=== PATIENT | male | born 1970 | race Caucasian/White ===

== ENCOUNTER 2017-02-26 14:42 | Emergency (ER) | payer OTHER ==
[2017-02-26 14:51] VITALS: BP 124/73; PULSE 76; RESP 16; TEMP 98; O2SAT 98
[2017-02-26] MEDS ORDERED: Lidocaine 1% Inj (20ml) IJ STA (14:55)
[2017-02-26] MEDS ORDERED: TDAP Vaccine 0.5 mL Syr IM ONE (14:55)
--- NOTE | 2017-02-26 15:00 | ED PDOC ---
Arrival/HPI - General Historian: Patient <Omari Monteiro - Last Filed: 02/26/17 15:18> <Araceli Potts - Last Filed: 02/26/17 15:31> - General Chief Complaint: Abnormal Skin Integrity Time Seen by Provider: 02/26/17 14:53 - History of Present Illness Narrative History of Present Illness (Text): 02/26/17 14:56 46 y/o male, no pmh, nkda, last tetanus doesn't remember, c/o rt. hand thumb laceration by the knife x 2 hours. Pt. has no numbness or tingling, no dizziness, no night sweat, no chest pain or shortness of breath, no palpitation , bleeding resolved, no other medical or psychological complaints. (Omari Monteiro) Past Medical History - Provider Review Nursing Documentation Reviewed: Yes - Psychiatric Hx Psychophysiologic Disorder: No Hx Substance Use: No <Omari Monteiro - Last Filed: 02/26/17 15:18> Family/Social History - Physician Review Nursing Documentation Reviewed: Yes Family/Social History: Unknown Family HX Smoking Status: Never Smoked Hx Alcohol Use: No Hx Substance Use: No <Omari Monteiro - Last Filed: 02/26/17 15:18> Allergies/Home Meds <Omari Monteiro - Last Filed: 02/26/17 15:18> <Araceli Potts - Last Filed: 02/26/17 15:31> Allergies/Adverse Reactions: Allergies No Known Allergies Allergy (Verified 02/26/17 14:48) Review of Systems - Review of Systems Constitutional: absent: Fatigue, Fevers Eyes: absent: Vision Changes ENT: absent: Hearing Changes Respiratory: absent: SOB, Cough, Sputum Cardiovascular: absent: Chest Pain Gastrointestinal: absent: Abdominal Pain, Diarrhea, Nausea, Vomiting Musculoskeletal: absent: Arthralgias, Back Pain, Myalgias Skin: Laceration. absent: Rash, Pruritis, Skin Lesions, Abscess, Ulcer, Cellulitis Neurological: absent: Headache, Dizziness, Focal Weakness, Gait Changes, Speech Changes Psychiatric: absent: Anxiety, Depression, Suicidal Ideation <Omari Monteiro - Last Filed: 02/26/17 15:18> Physical Exam Vital Signs Reviewed: Yes Temperature: Afebrile Blood Pressure: Normal Pulse: Regular Respiratory Rate: Normal Appearance: Positive for: Well-Appearing, Non-Toxic, Comfortable Pain Distress: Mild Mental Status: Positive for: Alert and Oriented X 3 - Systems Exam Head: Present: Atraumatic, Normocephalic Pupils: Present: PERRL Extroacular Muscles: Present: EOMI Conjunctiva: Present: Normal Mouth: Present: Moist Mucous Membranes Neck: Present: Normal Range of Motion Respiratory/Chest: Present: Clear to Auscultation, Good Air Exchange. No: Respiratory Distress, Accessory Muscle Use Cardiovascular: Present: Regular Rate and Rhythm, Normal S1, S2. No: Murmurs Abdomen: Present: Normal Bowel Sounds. No: Tenderness, Distention, Peritoneal Signs Back: Present: Normal Inspection Upper Extremity: Present: Normal Inspection, Other (Rt. hand: 1st digital thumb noted on the distal ventral pad region noted with superficial 2 laceration wounds totally approx. 3cm noted with mild oozing, no visible foreign bodies, FROM without limitation, sensation intact, motor 5/5, +radial pulse, capillary refill< 2 seconds, neurovascular intact. ). No: Cyanosis, Edema Lower Extremity: Present: Normal Inspection. No: Edema Neurological: Present: GCS=15, CN II-XII Intact, Speech Normal Skin: Present: Warm, Dry, Normal Color. No: Rashes Psychiatric: Present: Alert, Oriented x 3, Normal Insight, Normal Concentration <Omari Monteiro - Last Filed: 02/26/17 15:18> Medical Decision Making <Omari Monteiro - Last Filed: 02/26/17 15:18> <Araceli Potts - Last Filed: 02/26/17 15:31> ED Course and Treatment: 02/26/17 14:58 -tetanus, keflex -wound irrigated with 1000cc of normal saline, clean with betadine, 2cc of 1% lidocaine injected for local anesthetic as digital block, 5-0 nylon made 7 sutures, hemostasis obtained, bacitracin applied, gauze dressing, sensation intact, motor 5/5 -Discharge home with keflex, motrin, bacitracin ointment, keep the dressing dry and clean for 36 hours, sutures need to be removed by day 11-12, follow up with your own pmd and hand specialist within 2 days, return to the ER for any new or worsening signs or symptoms. 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 <Omari Monteiro - Last Filed: 02/26/17 15:18> - PA / LOCK SETTER / Resident Statement LEOLA has reviewed & agrees with the documentation as recorded. <Araceli Potts - Last Filed: 02/26/17 15:31> Disposition/Present on Arrival - Present on Arrival Any Indicators Present on Arrival: No History of DVT/PE: No History of Uncontrolled Diabetes: No Urinary Catheter: No History of Decub. Ulcer: No History Surgical Site Infection Following: None - Disposition Have Diagnosis and Disposition been Completed?: Yes Disposition Time: 15:19 Patient Plan: Discharge <Omari Monteiro - Last Filed: 02/26/17 15:18> <Araceli Potts - Last Filed: 02/26/17 15:31> - Disposition Diagnosis: Thumb laceration Disposition: HOME/ ROUTINE Condition: GOOD Additional Instructions: Discharge home with keflex, motrin, bacitracin ointment, keep the dressing dry and clean for 36 hours, sutures need to be removed by day 11-12, follow up with your own pmd and hand specialist within 2 days, return to the ER for any new or worsening signs or symptoms. Prescriptions: Bacitracin Ointment [Bacitracin] 1 appful TOP BID #15 g Cephalexin [Keflex] 500 mg PO QID #28 capsule Ibuprofen [Motrin] 600 mg PO QID PRN #24 tab PRN Reason: Other Referrals: Ras Jain MD [Staff Provider] - Follow up with primary [facility] [Outside] - Follow up with primary Forms: WORK NOTE
== END 2017-02-26 15:42 | disposition home or self-care (01) ==
LOC: MERGE 14:42 → ED 14:42
DX: S61.011A Laceration without foreign body of right thumb without damage to nail, initial encounter (principal); W26.0XXA Contact with knife, initial encounter; Z23 Encounter for immunization